=== PATIENT | female | born 1960 | race Caucasian/White ===

== ENCOUNTER 2017-03-19 22:16 | Emergency (ER) | payer OTHER ==
[~2017-03-19 22:16] MED LIST: AMOXIL500 MG PO; B12 1MG PE1000 MCG/M INH; FLEXERIL10 MG PO; MEDROL4 M2 PO; MOBIC 15MG15 MG PO; PANTOPRAZOLE SO40 MG PO; PERCOCET 325 MG1 TA2 PO; PERCOCET 5-3251 EACH PO; REGLAN10 M1 PO; TRAMADOL HCL50 MG PO
--- NOTE | 2017-03-20 00:04 | ED UPPER/LOWER EXTREMITY COMPL ---
History of Present Illness General Chief Complaint: Lower Extremity Problems Stated Complaint: "SWELLING IN BOTH FEET/LEGS AND PAIN X1DAY" Source: patient, friend Exam Limitations: no limitations Vital Signs & Intake/Output Vital Signs & Intake/Output Vital Signs Date Time Temp Pulse Resp B/P B/P Pulse O2 O2 Flow FiO2 Mean Ox Delivery Rate 03/20 0017 97.7 78 20 143/93 97 Room Air 03/19 2220 97.9 94 16 121/80 96 Room Air Allergies Coded Allergies: NO KNOWN ALLERGIES (05/16/16) Reconcile Medications Furosemide (Lasix) 20 MG TABLET 1 TAB PO DAILY PRN EDEMA Methylprednisolone. (Medrol) 4 MG TAB.DS.PK 1 DP PO AD INFLAMMATION 6 on day 1 then reduce by one tablet daily until gone Oxycodone HCl/Acetaminophen (Percocet 5-325 MG Tablet) 5 MG-325 MG TABLET 1 TAB PO Q4-6 PRN PAIN Pantoprazole Sodium 40 MG TABLET.DR 40 MG PO DAILY ACID REFLUX (Reported) Triage Note: TRIAGE; PT TO ED STATING HER FEET AND ANKLES HAVE STARTED TO SWELL SINCE YESTERDAY AND FEELS LIKE IT IS GETTING WORSE. DENIES ANY CP/SOB AT THIS TIME. STATES SHE DID FEEL SOB EARLIER WITH EXERTION. Triage Nurses Notes Reviewed? yes Onset: Gradual Duration: day(s): (3) Timing: recent history Severity: mild, moderate Associated Symptoms: swelling HPI: This is a 56-year-old female presents to the ER with her friends for chief complaint of increased lower extremity swelling for the past 2-3 days. She states that they feel very tight. She has difficult in walking because they are heavy. Complains of mild shortness of breath with inhalation. Denies any chest pain. She admits to drinking more heavily in the last few weeks. She is 6 years status post gastric bypass surgery. She started drinking one year after that. Patient follows up routinely at [facility] and states that she is on no daily medications. She is a half pack per day smoker as well. According to the patient her friends made her come to get a health check up. Past History Travel History Traveled to [place] past 21 day No Medical History Any Pertinent Medical History? 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 No Review of Systems Review of Systems Constitutional: Denies: chills, fever. EENTM: Reports: no symptoms. Respiratory: Reports: short of breath. Denies: cough. Cardiovascular: Reports: peripheral edema. Denies: chest pain, palpitations. Gastrointestinal/Abdominal: Denies: abdominal pain. Genitourinary: Reports: no symptoms. Musculoskeletal: Reports: no symptoms. Skin: Reports: no symptoms. Neurological/Psychological: Reports: no symptoms. Hematologic/Endocrine: Denies: bruising, bleeding, polyuria, polydipsia. Immunological: Reports: no symptoms. All Other Systems: Reviewed and Negative Physical Exam Physical Exam General Appearance: well developed/nourished, alert, awake, mild distress, obese Head: atraumatic Eyes: Bilateral: PERRL, EOMI. Ears, Nose, Throat: normal pharynx, normal ENT inspection, hearing grossly normal Neck: normal inspection, supple Cardiovascular/Respiratory: regular rate/rhythm Peripheral Pulses: 2+ radial (R), 2+ radial (L) Gastrointestinal: SOFT, NONTENDER, OBESE Back: normal inspection Leg Left: normal inspection, swelling Leg Right: normal range of motion, swelling Hip Left: normal range of motion, normal inspection Hip Right: normal range of motion, normal inspection Knee Left: normal range of motion, normal inspection, mass, nodules, swelling, tenderness, abrasions/lacerations, assymetry, bone tenderness, deformity, ecchymosis, evidence of injury, joint effusion, pain, soft tissue tenderness, limited range of motion Knee Right: normal range of motion, normal inspection Foot Left: normal range of motion, swelling Foot Right: normal range of motion, swelling Neurologic/Tendon: normal sensation, normal motor functions, normal tendon functions Skin: intact, normal color, warm/dry Lymphatic: no anterior cervical fany Progress Differential Diagnosis: DEPENDENT EDEMA, CHF, CIRRHOSIS, RENAL DYSFUNCTION Plan of Care: Orders Procedure Date/time Status URINE DRUGS OF ABUSE 03/20 22 Active URINALYSIS 03/20 22 Complete TROPONIN LEVEL 03/20 22 Complete ETHANOL 03/20 22 Complete COMPREHENSIVE METABOLIC PANEL 03/20 22 Complete CBC WITHOUT DIFFERENTIAL 03/20 22 Complete B-TYPE NATRIURETIC PEP (BNP) 03/20 22 Complete EKG 03/20 22 Active Laboratory Tests 03/20/17 0042: Urine Opiates Screen Pending, Methadone Screen Pending, Barbiturate Screen Pending, Ur Phencyclidine Scrn Pending, Amphetamines Screen Pending, U Benzodiazepines Scrn Pending, Urine Cocaine Screen Pending, Urine Cannabis Screen Pending, Urine Color YEL, Urine Clarity HAZY H, Urine pH 5.5, Ur Specific [place] >= 1.030, Urine Protein TRACE H, Urine Ketones 15 H, Urine Nitrite NEG, Urine Bilirubin NEG, Urine Urobilinogen 0.2, Ur Leukocyte Esterase NEG, Ur Microscopic SEDIMENT EXAMINED, Urine RBC RARE, Ur Epithelial Cells MOD H, Urine Crystals 1+ CA OX H, Urine Bacteria MOD H, Urine Mucus MANY H, Urine Hemoglobin NEG, Urine Glucose NEG 03/20/17 0040: Anion Gap 12, Estimated GFR > 60, BUN/Creatinine Ratio 28.3 H, Glucose 94, Calcium 9.1, Total Bilirubin 0.5, AST 45 H, ALT 45, Alkaline Phosphatase 101, Troponin I < 0.01, Oto-C-Wpcylzvvwtl Pept 63.3, Total Protein 7.4, Albumin 3.8, Globulin 3.6, Albumin/Globulin Ratio 1.1, CBC w Diff NO MAN DIFF REQ, RBC 4.45, MCV 91.0, MCH 30.4, RDW 14.4, MPV 7.7, Gran % 57.6, Lymphocytes % 29.7, Monocytes % 10.7 H, Eosinophils % 1.7, Basophils % 0.3, Absolute Granulocytes 5.5, Absolute Lymphocytes 2.8, Absolute Monocytes 1.0 H, Absolute Eosinophils 0.2, Absolute Basophils 0, PUBS MCHC 33.4, Serum Alcohol 15.0 Departure Departure Time of Disposition: 147 Disposition: HOME OR SELF CARE Condition: Stable Clinical Impression Primary Impression: Dependent edema Secondary Impressions: Alcohol abuse, Calcium oxalate crystals in urine Referrals: JACKIE NICOLE APRN (PCP/Family) Additional Instructions: Please take the Lasix as directed. Follow with her primary doctor in the office. Return to the ER for any changing or worsening symptoms. Departure Forms: Customer Survey General Discharge Information Prescriptions: Current Visit Scripts Furosemide (Lasix) 1 TAB PO DAILY PRN EDEMA #14 TAB
[2017-03-20 00:54] LABS: ABSOLUTE BASOPHIL COUNT 0 /CUMM (0.0-0.2); ABSOLUTE EOSINOPHIL COUNT 0.2 /CUMM (0.0-0.7); ABSOLUTE GRANULOCYTE CT 5.5 /CUMM (1.4-6.5); ABSOLUTE LYMPH COUNT 2.8 /CUMM (1.2-3.4); BASOPHIL % 0.3 % (0.0-2.0); EOSINOPHIL % 1.7 % (0-5); GRANULOCYTE % 57.6 % (42.2-75.2); HEMATOCRIT 40.5 % (37-47); MEAN CORPUSCULAR HGB 30.4 PG (27.0-31.0); MEAN CORPUSCULAR HGB CONC 33.4 G/DL (33.0-37.0); MEAN PLATELET VOLUME 7.7 FL (7.4-10.4); PLATELET COUNT 241 /CUMM (130-400); RBC DISTRIBUTION WIDTH 14.4 % (11.5-14.5); RED BLOOD CELL CT 4.45 /CUMM (4.20-5.40); WHITE BLOOD CELL COUNT 9.5 /CUMM (4.8-10.8)
[2017-03-20] MEDS ORDERED: LASIX20 M1 PO (01:49)
[2017-03-20 01:55] VITALS: BP 144/85
== END 2017-03-20 01:56 ==
LOC: ERH 22:16
PROVIDERS: Emergency Medicine
DX: R60.0 Localized edema (principal); F10.10 Alcohol abuse, uncomplicated; R82.99 Other abnormal findings in urine; R06.02 Shortness of breath
CPT/HCPCS: 80307; 81001; 93005; 93010; G0480